=== PATIENT | female | born 1975 | race Caucasian/White ===

== ENCOUNTER 2017-12-11 10:39 | Emergency (ER) | payer SELFPAY ==
[2017-12-11 10:44] VITALS: BP 107/55; PULSE 84; RESP 20; TEMP 37.1; O2SAT 100
--- NOTE | 2017-12-11 11:27 | ED.GENADUL_ITS ---
Disposition Clinical Impression: Abrasion of sclera of left eye Disposition: HOME Condition: Stable Instructions: Corneal Abrasion (ED) Additional Instructions: Please use the provided ointment 4 times a day for the next 5 days. Return immediately to the emergency department or seek immediate eye examination if you have any change in her vision, vision loss, significant flashes or floaters , or severe pain. Referrals: [facility] [Outside] (Follow-up for reassessment in 24-48 hours or as directed by their office.) Medical Decision Making - Medical Decision Making Patient presenting to the emergency department for chief complaint of left eye discomfort and redness. This happened approximately 1 hour prior to arrival. Patient has no visual disturbance, normal ocular movements, normal visual acuity. Troy lamp and slit lamp examination showed dye uptake in approximately the 5 o'clock position and during flushing of the stain a single dark foreign body was noted and removed from the surface the eye. Given dye uptake and foreign body and concern for scleral abrasion but no signs of corneal abrasion are noted. This may also be an irritant conjunctivitis from unknown cause. Patient was placed upon erythromycin ointment and encouraged to follow-up with [facility] in 24-48 hours. Patient states that she already has appoint with them later this afternoon I informed her that she should call their office for follow-up appointment or to see them still today if they recommended this. After discussion of diagnosis and plan of care with patient patient agreed and stated no further needs, questions, or concerns at this time. History of Present Illness - General Chief complaint: EyeProblem Stated complaint: UNKNOWN Time Seen by Provider: 12/11/17 10:42 Source: patient, RN notes reviewed Mode of arrival: ambulatory Limitations: no limitations - History of Present Illness Initial comments: Patient reports approximately an hour prior to arrival she was taking a shower and noticed some irritation to her left eye. She then looked in the mirror and noticed her eye was reddened. Patient denies any vision change, headache, or other symptoms. Onset/Timin -: hour(s) Location: eyes, left Severity scale (1-10): 4 Quality: burning, aching Consistency: constant Improves with: none Worsens with: none Associated Symptoms: denies other symptoms - Related Data Unknown [No Known Home Meds] 12/11/17 Allergies Allergy/AdvReac Type Severity Reaction Status Date / Time No Known Allergies Allergy Unverified 12/11/17 10:45 Review of Systems Constitutional: no symptoms reported. denies: chills, fever Eyes: as per HPI, eye pain. denies: eye discharge, vision change ENT: denies: ear pain, throat pain, congestion Respiratory: no symptoms reported Neurological: denies: headache Comment: All other systems reviewed and negative Past Medical History - Past Medical History Medical history: no medical history Surgical history: non-contributory - Social History Smoking status: never smoker Alcohol use: rarely Drug use: none Living Situation: lives with family General Exam - General Limitations: no limitations General appearance: alert, in no apparent distress - Head Head exam: Present: atraumatic, normocephalic - Eye Eye exam: Present: PERRL, EOMI, conjunctival injection (Left eye), other ( Patient's eye was stained with fluorescein and tetracaine and examined with slit lamp and was limp. There was slight dye uptake in approximately the 5 o' clock position just below the left iris.). Absent: scleral icterus, nystagmus, periorbital swelling, periorbital tenderness Pupils: Present: normal accommodation - Expanded Eye Exam No standard instances Eyelids: Normal Inspection: Bilateral Pupils: Regular, Round: Bilateral Sclera/Conjunctival: Normal Inspection: Right, Injection: Left, Foreign Body: Left (During flushing of stain a single dark object was seen and removed from the left eye.) Anterior chamber: Normal Inspection: Bilateral Posterior chamber: Deferred: Bilateral Visual acuity (R) = 20/: 20 Visual acuity (L) = 20/: 20 With correction: No IOP (L) in mmH IOP measured with: Tonopen - ENT ENT exam: Present: mucous membranes moist - Respiratory Respiratory exam: Absent: respiratory distress - Neurological Exam Neurological exam: Present: alert, oriented X3. Absent: altered - Skin Skin exam: Present: warm, dry, normal color Course Vital Signs - 24 hr 12/11/17 10:44 Temperature 37.1 C Pulse 84 Respiratory 20 Rate Blood Pressure 107/55 Pulse Oximetry 100
[2017-12-11] MEDS: Balanced Salt Solution 15 ML BTL OP (11:28)
[2017-12-11] MEDS: Tetracaine 0.5% 4 ML BTL OP (11:28)
[2017-12-11] MEDS: Erythromycin Ophth Oint 3.5 GM TUBE 1 GM OS (11:28)
[2017-12-11 14:03] VITALS: BP 107/55; PULSE 84; RESP 20; TEMP 37.1; O2SAT 100
== END 2017-12-11 11:40 | disposition home or self-care (01) ==
PROVIDERS: Emergency Provider Student in an Organized Health Care Education/Training Program; PCP Nurse Practitioner Family
DX: S05.01XA Injury of conjunctiva and corneal abrasion without foreign body, right eye, initial encounter (principal); T15.01XA Foreign body in cornea, right eye, initial encounter
CPT/HCPCS: 65222

== ENCOUNTER 2018-05-05 02:45 | Emergency (ER) | payer SELFPAY ==
[2018-05-05 02:50] VITALS: BP 121/68; PULSE 99; RESP 20; TEMP 37.1; O2SAT 98
--- NOTE | 2018-05-05 03:01 | DI.CT_ITS ---
SYMPTOM/DIAGNOSIS: LT TRAUMA, HEADACHE NONCONTRAST HEAD CT: No priors. A noncontrast cranial CT was performed. The ventricular system is normal in appearance. There is no evidence of an intracranial mass lesion. There is no evidence of a subdural or epidural hematoma. No focal areas of decreased attenuation are seen. CONCLUSION: Normal noncontrast Cranial CT.
--- NOTE | 2018-05-05 03:01 | W.ED.GENAD ---
Discharge Plan Disposition Patient Disposition: HOME Condition: Stable Discharge Details Chief Complaint: HeadInjury Clinical Impression: Post concussive syndrome Primary Care Provider: Miri Noel ED Provider: Ricardo Morrell Home Meds and New Rx's Prescriptions: No Action No Known Home Meds RF: 0 Discharge Instructions Instructions: Post Concussion Syndrome (ED), Concussion (ED) Additional Instructions: See enclosed head injury instructions. Your CAT scan did not reveal any acute intracranial findings. Avoid screen time as well as stressful work environments until you have had some improvement in discomfort. May use Tylenol and/or ibuprofen as needed. Return to the emergency department for any acute concerns. Please follow-up in clinic for recheck if not improving in 5-7 days time Medical Decision Making 42-year-old female who has had a aching left-sided headache since falling and striking her head weeks ago. It is worsened with screen time and work. She arrives with unremarkable vital signs, normal neurologic examination. Differential diagnosis includes postconcussive syndrome as well must exclude underlying skull fracture or subdural hematoma. Patient referred for CT does not reveal acute intracranial finding. Discussed with her ongoing avoidance of screen time and limiting stress at work. Patient given instructions regarding postconcussive syndrome HPI General Mode of arrival: ambulatory. Date/Time Provider Initiated Documentation: 05/05/18 02:53. Limitations to Documentation: no limitations. Information obtained by: patient. History of Present Illness 42 year old F presents to the emergency department with the chief complaint of Headache, described as moderate, Quality is described as aching, and is localized to the head and left. Patient reports no radiation. Patient started experiencing this day(s) and it has been constant. No relieving factors improve symptom(s), No exacerbating factors reported . Patient notes headaches; denies fever/chills and nausea/vomiting. Patient did receive the following treatments prior to arrival, none Related Data Home Medications Medication Instructions Recorded Confirmed Unknown [No Known Home Meds] 12/11/17 12/11/17 Allergies Allergy/AdvReac Type Severity Reaction Status Date / Time No Known Allergies Allergy Unverified 12/11/17 10:45 General Stated Complaint: HeadInjury GERARDO: 4 Review of Systems Review of Systems 8 systems reviewed and otherwise negative [facility] Social History Smoking/Tobacco Use Status: Never Exam Narrative Exam Narrative: GEN: awake, alert, oriented 3. Pleasant, well groomed, interactive. HEAD: Normocephalic, atraumatic ENT: Mucous membranes moist, oropharynx unremarkable, External ear exam unremarkable EYES: PERRL, EOMI NECK: Full ROM, no THOMAS, no menigismus CHEST/RESP: Nontender, clear to auscultation bilateral, no wheeze/rhonchi/rales CARDIOVASCULAR: RRR, no murmur, rub karen. 2+ Rad pulse bilateral ABDOMEN: Soft, nontender, no mass. +Bowel sounds EXT: Full ROM, no edema, no rash Neuro: Grossly normal neurologic exam, conversant, interactive. Cranial nerves II through XII intact Psych: Speech fluent, thoughts congruent, affect normal Course Vital Signs Temperature 37.1 C 05/05/18 02:50 Pulse 99 H 05/05/18 02:50 Respiratory Rate 20 05/05/18 02:50 Blood Pressure 121/68 05/05/18 02:50 Pulse Oximetry 98 05/05/18 02:50 Temperature 37.1 C 05/05/18 02:50 Temperature Source Temporal Artery Scan 05/05/18 02:50 Pulse 99 H 05/05/18 02:50 Respiratory Rate 20 05/05/18 02:50 Respiratory Effort Non-Labored 05/05/18 02:58 Respiratory Depth Normal 05/05/18 02:58 Respiratory Pattern Normal 05/05/18 02:58 Blood Pressure 121/68 05/05/18 02:50 Blood Pressure Position Sitting 05/05/18 02:50 Pulse Oximetry 98 05/05/18 02:50 Oxygen Delivery Method Room Air 05/05/18 02:50 Oxygen Flow Rate 0 05/05/18 02:50 Pain Level 5 05/05/18 02:50
--- NOTE | 2018-05-05 03:04 | ED.GENADUL_ITS ---
Discharge Plan Disposition Patient Disposition: HOME Condition: Stable Discharge Details Chief Complaint: HeadInjury Clinical Impression: Post concussive syndrome Primary Care Provider: Miri Noel ED Provider: Ricardo Morrell Home Meds and New Rx's Prescriptions: No Action No Known Home Meds RF: 0 Discharge Instructions Instructions: Post Concussion Syndrome (ED), Concussion (ED) Additional Instructions: See enclosed head injury instructions. Your CAT scan did not reveal any acute intracranial findings. Avoid screen time as well as stressful work environments until you have had some improvement in discomfort. May use Tylenol and/or ibuprofen as needed. Return to the emergency department for any acute concerns. Please follow-up in clinic for recheck if not improving in 5-7 days time Medical Decision Making 42-year-old female who has had a aching left-sided headache since falling and striking her head weeks ago. It is worsened with screen time and work. She arrives with unremarkable vital signs, normal neurologic examination. Differential diagnosis includes postconcussive syndrome as well must exclude underlying skull fracture or subdural hematoma. Patient referred for CT does not reveal acute intracranial finding. Discussed with her ongoing avoidance of screen time and limiting stress at work. Patient given instructions regarding postconcussive syndrome HPI General Mode of arrival: ambulatory . Date/Time Provider Initiated Documentation: 05/05/18 02:53 . Limitations to Documentation: no limitations . Information obtained by: patient . History of Present Illness 42 year old F presents to the emergency department with the chief complaint of Headache, described as moderate, Quality is described as aching, and is localized to the head and left. Patient reports no radiation. Patient started experiencing this day(s) and it has been constant. No relieving factors improve symptom(s), No exacerbating factors reported . Patient notes headaches; denies fever/chills and nausea/vomiting. Patient did receive the following treatments prior to arrival, none Related Data Home Medications Medication Instructions Recorded Confirmed Unknown [No Known Home Meds] 12/11/17 12/11/17 Allergies Allergy/AdvReac Type Severity Reaction Status Date / Time No Known Allergies Allergy Unverified 12/11/17 10:45 General Stated Complaint: HeadInjury GERARDO: 4 Review of Systems Review of Systems 8 systems reviewed and otherwise negative [facility] Social History Smoking/Tobacco Use Status: Never Exam Narrative Exam Narrative: GEN: awake, alert, oriented 3. Pleasant, well groomed, interactive. HEAD: Normocephalic, atraumatic ENT: Mucous membranes moist, oropharynx unremarkable, External ear exam unremarkable EYES: PERRL, EOMI NECK: Full ROM, no THOMAS, no menigismus CHEST/RESP: Nontender, clear to auscultation bilateral, no wheeze/rhonchi/rales CARDIOVASCULAR: RRR, no murmur, rub karen. 2+ Rad pulse bilateral ABDOMEN: Soft, nontender, no mass. +Bowel sounds EXT: Full ROM, no edema, no rash Neuro: Grossly normal neurologic exam, conversant, interactive. Cranial nerves II through XII intact Psych: Speech fluent, thoughts congruent, affect normal Course Vital Signs Temperature 37.1 C 05/05/18 02:50 Pulse 99 H 05/05/18 02:50 Respiratory Rate 20 05/05/18 02:50 Blood Pressure 121/68 05/05/18 02:50 Pulse Oximetry 98 05/05/18 02:50 Temperature 37.1 C 05/05/18 02:50 Temperature Source Temporal Artery Scan 05/05/18 02:50 Pulse 99 H 05/05/18 02:50 Respiratory Rate 20 05/05/18 02:50 Respiratory Effort Non-Labored 05/05/18 02:58 Respiratory Depth Normal 05/05/18 02:58 Respiratory Pattern Normal 05/05/18 02:58 Blood Pressure 121/68 05/05/18 02:50 Blood Pressure Position Sitting 05/05/18 02:50 Pulse Oximetry 98 05/05/18 02:50 Oxygen Delivery Method Room Air 05/05/18 02:50 Oxygen Flow Rate 0 05/05/18 02:50 Pain Level 5 05/05/18 02:50
--- NOTE | 2018-05-05 03:22 | DI.VRAD_ITS ---
EXAM: CT Head Without Contrast EXAM DATE/TIME: 05/05/2018 3:01 AM CLINICAL HISTORY: 42 years old, female; Pain; Headache; Patient HX: L trauma, WHEAT; Additional info: Per PT: Fell, hit head on tub TECHNIQUE: Axial computed tomography images of the head/brain without contrast. Coronal and sagittal reformatted images were created and reviewed. COMPARISON: No relevant prior studies available. FINDINGS: Brain: No evidence for acute transcortical infarct. No mass effect or midline shift. No extra-axial collection. No acute intracranial hemorrhage. Basal cisterns are patent. Ventricles: Normal. No ventriculomegaly. Bones/joints: Normal. No acute fracture. Sinuses: Normal as visualized. No acute sinusitis. Mastoid air cells: Tympanomastoid cavities are clear. Soft tissues: Normal. IMPRESSION: No acute intracranial hemorrhage or mass effect. Dictated and Authenticated by: Kingsley Hernandez MD. Ordering:MARCI Silva MD
[2018-05-05 03:23] VITALS: BP 121/68; PULSE 99; RESP 20; TEMP 37.1; O2SAT 98
== END 2018-05-05 03:27 | disposition home or self-care (01) ==
PROVIDERS: Emergency Provider Emergency Medicine; PCP Nurse Practitioner Family
DX: F07.81 Postconcussional syndrome (principal); G44.309 Post-traumatic headache, unspecified, not intractable; W18.2XXA Fall in (into) shower or empty bathtub, initial encounter
CPT/HCPCS: 99284; 70450

== ENCOUNTER 2024-05-20 15:20 | Outpatient (REF) | payer MEDICAID, SELFPAY ==
[2024-05-20 13:40] LABS: Bilirubin Small (Negative); Blood Moderate (Negative); Clarity Cloudy (Clear); Glucose Negative (Negative); Ketones 15 mg/dL (Negative); Leukocyte Esterase Negative (Negative); Nitrite Negative (Negative); Specific Gravity >= 1.030 (1.005-1.025); Urobilinogen 0.2 mg/dL (Up to 0.2)
[2024-05-20 13:51] LABS: Bacteria Negative HPF (Negative); Crystals Moderate Amorphous HPF (Negative); Epithelial Cells Rare HPF (Negative); WBC Negative HPF (0-5)
[2024-05-20 13:52] LABS: C & S Indicated? No; Casts 0-2 Hyaline LPF (Negative); Mucus Trace (Negative)
== END 2024-05-20 15:21 | disposition home or self-care (01) ==
LOC: LBN 15:20
PROVIDERS: PCP Nurse Practitioner Family; Visit Provider Naturopath
DX: E88.09 Other disorders of plasma-protein metabolism, not elsewhere classified (principal)
CPT/HCPCS: 81003; 81015

== ENCOUNTER 2024-09-03 11:37 | Emergency (ER) | payer MEDICAID, SELFPAY ==
[2024-09-03] VITALS (21 sets, daily range): BP systolic 81–180; BP diastolic 33–82; PULSE 81–115; RESP 10–25; TEMP 36.7; O2SAT 94–99
--- NOTE | 2024-09-03 11:45 | RT.EKG_ITS ---
APPROVED REPORT Exam: Resting ECG Reason for Exam: Elevated Heart Rate Patient Location: E HR:99 bpm ECG Measurements Heart Rate 99 AXIS VA 118 P 80 QRSd 92 QRS 77 QT 323 T 32 QTc 414 Conclusion Sinus rhythm...normal P axis, V-rate 60- 99
[2024-09-03 12:32] LABS: Abs Immature Grans 0.02 10^3/uL (0.0-0.06); Absolute Basophil Count 0.06 10^3/uL (0.0-0.2); Absolute Eosinophil Count 0.08 10^3/uL (0.0-0.7); Absolute Monocyte Count 0.44 10^3/uL (0.1-0.8); Absolute Neutrophil Count 4.65 10^3/uL (1.2-6.7); Basophils % 0.9 %; Eosinophils % 1.3 %; HCT 45.2 % (36.0-46.0); HGB 15.3 g/dL (11.2-15.7); Immature Grans % 0.3 %; Lymphocytes % 17.3 %; MCH 29.8 pg (27.0-33.0); MCHC 33.8 % (32.0-36.0); MCV 88 fL (80-95); MPV 9.2 fL (8.0-11.0); Monocytes % 6.9 %; Neutrophils % 73.3 %; Platelet Count 389 10^3/uL (130-400); RBC 5.13 10^6/uL (3.93-5.22); RDW 13.8 % (11.7-14.6); RDW-SD 44.6 fL; WBC 6.35 10^3/uL (4.4-10.8)
[2024-09-03 13:01] LABS: ALT 19 U/L (14-59); AST 14 U/L (15-37); Albumin 4.3 g/dL (3.4-5.0); Alkaline Phosphatase 115 U/L (46-116); BUN 21 mg/dL (7-18); Bilirubin, Total 0.5 mg/dL (0.2-1.0); CREATININE 0.9 mg/dL (0.55-1.02); Calcium 9.4 mg/dL (8.5-10.1); Chloride 102 mmol/L (98-107); Estimated GFR 78.86 (mL/min/1.73m2); Glucose 126 mg/dL (74-106); Magnesium 1.8 mg/dL (1.8-2.4); Potassium 3.6 mmol/L (3.5-5.1); Sodium 141 mmol/L (136-145); TSH (W/Ref FT4) 1.47 uIU/mL (0.36-3.74); Total Protein 7.4 g/dL (6.4-8.2)
[2024-09-03 13:02] LABS: Troponin I < 4 ng/L (<or=51)
[2024-09-03 13:46] LABS: Troponin I < 4 ng/L (<or=51)
[2024-09-03 14:08] LABS: FREE T4 0.81 ng/dL (0.76-1.46)
--- NOTE | 2024-09-03 15:44 | W.ED.GENAD ---
Discharge Plan Disposition Patient Disposition: Home Condition: Stable Discharge Details Clinical Impression: Tachycardia, Graves disease Primary Care Provider: Miri Noel ED Provider: Juliana Bean Home Meds and New Rx's Prescriptions: Continued methimazole 5 mg tablet 5 mg PO BID Patient Comments: recently changed to this dose Discharge Instructions Instructions: Graves' Disease Additional Instructions: please write to traffic ii manager as needed discuss holter monitor or zio patch wtih your pcp rest for remainder of day and stay hydrated return with persistent or worsening complaints tsh today 1.47 I added on free t4 and t3, will call if any abnormalities Referrals: Miri Noel [Primary Care Provider] - HPI General Date/Time Provider Initiated Documentation: 09/03/24 12:09. HPI Narrative: 49-year-old female with Graves' disease, tachycardia, and anxiety since this morning. Concerned about abnormal thyroid levels, similar to initial diagnosis 5 months ago. Methimazole dose decreased 2 weeks ago at [facility]. No new medications, , chest pain, significant shortness of breath, illicit substance use, recent surgeries, long drives, or history of coagulopathy. Related Data Home Medications ?Medication ?Instructions ?Recorded ?Confirmed methimazole 5 mg tablet 5 mg PO BID 09/03/24 09/03/24 Allergies Allergy/AdvReac Type Severity Reaction Status Date / Time No Known Allergies Allergy Unverified 12/11/17 10:45 General Stated Complaint: Arrhythmia GERARDO: 3 Course Vital Signs Vital signs: Vital Signs Temperature 36.7 C 09/03/24 11:54 Pulse 115 H 09/03/24 11:54 Respiratory Rate 16 09/03/24 11:54 Blood Pressure 180/82 H 09/03/24 11:54 Pulse Oximetry 98 09/03/24 11:54 Temperature 36.7 C 09/03/24 11:54 Pulse 85 09/03/24 13:50 Pulse 85 09/03/24 13:50 Respiratory Rate 15 09/03/24 13:50 Blood Pressure 111/68 09/03/24 13:46 Blood Pressure Mean 81 09/03/24 13:46 Pulse Oximetry 95 09/03/24 13:50 Pain Level 0 09/03/24 11:54 Lab/Test Results Lab/Test Results: Laboratory Tests Range/Units 09/03/24 09/03/24 12:10 13:20 WBC (4.4-10.8) 10^3/uL 6.35 RBC (3.93-5.22) 10^6/uL 5.13 Hgb (11.2-15.7) g/dL 15.3 Hct (36.0-46.0) % 45.2 MCV (80-95) fL 88 MCH (27.0-33.0) pg 29.8 MCHC (32.0-36.0) % 33.8 RDW (11.7-14.6) % 13.8 Plt Count (130-400) 10^3/uL 389 MPV (8.0-11.0) fL 9.2 Immature Gran % % 0.3 Neutrophils % % 73.3 Lymphocytes % % 17.3 Monocytes % % 6.9 Eosinophils % % 1.3 Basophils % % 0.9 Nucleated RBC % (0.0-0.3) % 0.0 Absolute Neutrophils (1.2-6.7) 10^3/uL 4.65 Absolute Lymphocytes (1.2-3.4) 10^3/uL 1.10 L Absolute Monocytes (0.1-0.8) 10^3/uL 0.44 Absolute Eosinophils (0.0-0.7) 10^3/uL 0.08 Absolute Basophils (0.0-0.2) 10^3/uL 0.06 Sodium (136-145) mmol/L 141 Potassium (3.5-5.1) mmol/L 3.6 Chloride (98-107) mmol/L 102 Carbon Dioxide (21.0-32.0) mmol/L 29.0 Anion Gap (3-11) mmol/L 10.0 BUN (7-18) mg/dL 21 H Creatinine (0.55-1.02) mg/dL 0.9 Est GFR (CKD-EPI 2020) (mL/min/1.73m2) 78.86 Glucose (74-106) mg/dL 126 H Calcium (8.5-10.1) mg/dL 9.4 Magnesium (1.8-2.4) mg/dL 1.8 Total Bilirubin (0.2-1.0) mg/dL 0.5 AST (15-37) U/L 14 L ALT (14-59) U/L 19 Alkaline Phosphatase (46-116) U/L 115 Troponin I (<or=51) ng/L < 4 < 4 Total Protein (6.4-8.2) g/dL 7.4 Albumin (3.4-5.0) g/dL 4.3 TSH (0.36-3.74) uIU/mL 1.47 Free T4 (0.76-1.46) ng/dL 0.81 Medical Decision Making Physical exam: General Appearance: Anxious, alert, and oriented. Vital signs: Within normal limits. HEENT: No thyromegaly. Respiratory: Lungs clear to auscultation. Speaking in complete sentences. Cardiovascular: Regular cardiac rate and rhythm. Extremities: No peripheral edema, calf swelling, or tenderness. Skin: Warm and dry, no rash. Neurological: Normal. Results: TSH and free T4 within normal limits. Free T3 pending. Initial Assessment: 49-year-old female with history of Graves' disease, presenting with tachycardia, restlessness, and anxiety starting this morning. Symptoms similar to initial diagnosis. Differential Diagnosis: - Graves' disease: TSH and free T4 within normal limits. Free T3 pending. Methimazole dose decreased 2 weeks ago. No additional testing indicated. - Pulmonary embolism: Very low suspicion clinically. No chest pain, no chest x-ray ordered. ED Course: - Diagnostic labs reassuring. - TSH within normal limits. - Free T4 within normal limits at 0.81. - Encouraged follow-up with cardiology. - No chest x-ray ordered. - Encouraged follow-up with PCP in 1-2 days. - Return precautions reviewed. Final Assessment: Patient's symptoms likely related to Graves' disease and recent methimazole dose adjustment. No indication for additional testing at this time. Follow-up with PCP and cardiology recommended. Clinical Impression: - Graves' disease - Tachycardia - Anxiety Disposition: - Follow-Up: Follow up with PCP in 1-2 days. Follow up with cardiology. MDM Components Evaluation: - Number of Differential Diagnoses or Management Options: Graves' disease, pulmonary embolism - Amount and Complexity of Data Reviewed: Diagnostic labs, TSH, free T4 - Risk of Complication and Morbidity or Mortality: Low risk for pulmonary embolism, monitoring for thyroid level normalization Quality:SDOH Health Related Social Needs: No Data to Display PFSH All Active Problems (Updated 09/03/24 @ 13:46 by RONNA Hazel) Graves disease (Acute) Tachycardia (Acute) Social History Smoking/Tobacco Use Status: Never Smoking risk assessment performed?: Yes Alcohol Intake: current Alcohol Intake frequency: holidays/special occasions only Drug use: Never Substance use type: does not use Do you feel safe in your relationship?: Yes
[2024-09-03 22:11] LABS: T3,Free 3.7 pg/mL (2.8-5.3)
== END 2024-09-03 13:55 | disposition home or self-care (01) ==
PROVIDERS: Emergency Provider Physician Assistant; PCP Nurse Practitioner Family
DX: R00.0 Tachycardia, unspecified (principal); E05.00 Thyrotoxicosis with diffuse goiter without thyrotoxic crisis or storm
CPT/HCPCS: 80053; 93005; 99284; 83735; 84439; 84443; 84481; 84484; 85025; 93010